=== PATIENT | male | born 1970 | race Caucasian/White ===

== ENCOUNTER 2019-08-31 08:37 | Day surgery (SDC) | payer BC ==
[2019-08-30 16:11] VITALS: BMI 43.0
[2019-08-31 10:31] VITALS: TEMP 98.5
[2019-08-31 11:27] VITALS: BP 130/75; PULSE 68
== END 2019-08-31 11:18 | disposition home or self-care (01) ==
LOC: JASU-ENDO 08:37
PROVIDERS: ATTEND Internal Medicine Gastroenterology
PROC: 0DJD8ZZ Inspection of Lower Intestinal Tract, Via Natural or Artificial Opening Endoscopic (ICD-10-PCS; principal; 2019-08-31 09:30)
DX: Z12.11 Encounter for screening for malignant neoplasm of colon (principal); K64.8 Other hemorrhoids